=== PATIENT | female | born 1960 | race American Indian/Alaskan Native ===

== ENCOUNTER 2020-10-10 11:14 | Emergency (ER) | payer BC, OTHER ==
[2020-10-10 13:19] VITALS: BP 144/85
--- NOTE | 2020-10-10 15:11 | Emergency Department Report ---
ED Shortness of Breath HPI - General Chief Complaint: Fever Stated Complaint: COVID SYMPTOMS Time Seen by Provider: 10/10/20 15:07 Source: patient Mode of arrival: Ambulatory Limitations: No Limitations - History of Present Illness Initial Comments: 60-year-old female presents to the ER today with complaints of fever and shortness of breath. Patient states that her symptoms started about a week ago. She states that she was diagnosed with Covid 3 days ago. Patient states that she has been having subjective fever intermittently for the past week. She states that when she has a fever she has been taking Tylenol which typically brings the fever down but once it wears off the fever returns. She reports associated chills and generalized fatigue. She denies any body aches, cough, wheezing, chest pain, nausea, vomiting, abdominal pain or UTI symptoms. She denies any tobacco use. She denies any apparent ill contacts or recent travel. She denies any significant past medical history. MD Complaint: shortness of breath -: Gradual (1 week ago) - Related Data Previous Rx's Medication Instructions Recorded Last Taken Type Albuterol Mdi (or & Nicu Only) 2 puff IH QID PRN #8.5 gram 10/10/20 Unknown Rx [ProAir HFA Inhaler] Azithromycin [Zithromax Z-NIGEL] 250 mg PO DAILY #1 pack 10/10/20 Unknown Rx dexAMETHasone [Decadron] 4 mg PO DAILY #5 tablet 10/10/20 Unknown Rx ED Review of Systems ROS: Stated complaint: COVID SYMPTOMS Other details as noted in HPI Comment: All other systems reviewed and negative Constitutional: chills, fever, malaise ENT: denies: ear pain, throat pain Respiratory: shortness of breath, SOB with exertion. denies: cough, orthopnea, wheezing Cardiovascular: denies: chest pain, palpitations Gastrointestinal: denies: abdominal pain, nausea, vomiting, diarrhea, constipation, hematemesis, hematochezia Genitourinary: denies: urgency, dysuria, frequency, hematuria, discharge, abnormal menses, dyspareunia Musculoskeletal: denies: back pain, joint swelling, arthralgia Skin: denies: rash, lesions Neurological: denies: headache, weakness, paresthesias Psychiatric: denies: anxiety, depression, auditory hallucinations, visual hallucinations, homicidal thoughts, suicidal thoughts Hematological/Lymphatic: denies: easy bleeding, easy bruising ED Past Medical Hx - Past Medical History Previous Medical History?: No - Surgical History Past Surgical History?: No - Social History Smoking Status: Never Smoker Substance Use Type: None - Medications Home Medications: Home Medications Medication Instructions Recorded Confirmed Last Taken Type Albuterol Mdi (or & Nicu Only) 2 puff IH QID PRN #8.5 gram 10/10/20 Unknown Rx [ProAir HFA Inhaler] Azithromycin [Zithromax Z-NIGEL] 250 mg PO DAILY #1 pack 10/10/20 Unknown Rx dexAMETHasone [Decadron] 4 mg PO DAILY #5 tablet 10/10/20 Unknown Rx ED Physical Exam - General Limitations: No Limitations General appearance: alert, other (Mildly ill-appearing but overall nontoxic) - Head Head exam: Present: atraumatic, normocephalic, normal inspection - Eye Eye exam: Present: normal appearance, PERRL, EOMI Pupils: Present: normal accommodation - ENT ENT exam: Present: normal exam, mucous membranes moist - Neck Neck exam: Present: normal inspection, full ROM. Absent: meningismus - Respiratory Respiratory exam: Present: normal lung sounds bilaterally. Absent: respiratory distress, wheezes, rales, rhonchi, stridor - Cardiovascular Cardiovascular Exam: Present: regular rate, normal rhythm, normal heart sounds - GI/Abdominal GI/Abdominal exam: Present: soft. Absent: distended, tenderness, guarding - Neurological Exam Neurological exam: Present: alert, oriented X3, CN II-XII intact, normal gait - Psychiatric Psychiatric exam: Present: normal affect, normal mood ED Course Vital Signs 10/10/20 13:14 Temperature 99.4 F Pulse Rate 84 Respiratory 18 Rate Blood Pressure 144/85 O2 Sat by Pulse 92 Oximetry ED Medical Decision Making - Lab Data Result diagrams: 10/10/20 15:39 10/10/20 15:39 - EKG Data EKG shows normal: sinus rhythm Rate: normal (68) - EKG Data Interpretation: no acute changes - Radiology Data Radiology results: report reviewed Patient: IRMA HORN MR#: [id number] : 1960 Acct:[id number] Age/Sex: 60 / F ADM Date: 10/10/20 Loc: ED Attending Dr: Ordering Physician: YFN HUGHES Date of Service: 10/10/20 Procedure(s): XR chest routine 2V Accession Number(s): [id number] cc: YFNAMANDA HUGHES Fluoro Time In Minutes: CHEST 2 VIEWS INDICATION: sob. COMPARISON: None FINDINGS: Support devices: None. Heart: Within normal limits. Lungs/pleura: Subtle focal airspace opacities are identified in both perihilar regions. No consolidation, pleural fluid or pneumothorax. Additional findings: None. IMPRESSION: Subtle bilateral lung opacities are suggested. Viral infection is not excluded. Please correlate with the patient's clinical presentation. Signer Name: Isaiah Dowell Jr, MD Signed: 10/10/2020 3:37 PM Workstation Name: [id number] Transcribed By: YI Dictated By: ISAIAH DOWELL JR, MD Electronically Authenticated By: ISAIAH DOWELL JR, MD Signed Date/Time: 10/10/201536 DD/ 35 TD/TT: - Medical Decision Making 60-year-old female presents to the ER today with complaints of fever and shortness of breath. Patient states that her symptoms started about a week ago. She states that she was diagnosed with Covid 3 days ago. Patient states that she has been having subjective fever intermittently for the past week. She states that when she has a fever she has been taking Tylenol which typically brings the fever down but once it wears off the fever returns. She reports associated chills and generalized fatigue. She denies any body aches, cough, wheezing, chest pain, nausea, vomiting, abdominal pain or UTI symptoms. She denies any tobacco use. She denies any apparent ill contacts or recent travel. She denies any significant past medical history 1656: Labs/CXr/EKG reviewed - Labs including trop wnl; EKG show no STEMI/acute ischemic changes or significant dysrhythmia; CXR shows subtle bilateral lung opacities are suggested. Viral infection is not excluded. Please correlate with the patient's clinical presentation. changes on cxr likely secondary to COVID diagnosis. Patient was ambulated in the ER, her O2 sat maintained at 94% and she did not appear to be in any respiratory distress. Her heart rate maintained in the 90s during ambulation. She was afebrile and her remaining vitals were stable. She did not appear toxic or overly ill-appearing and did not appear significantly dehydrated and she was neurologically intact. Discussed case with Dr Nazario -based on patient current condition, there is no indication for admission; patient will be discharged home with a prescription for Decadron, albuterol, and Z-Nigel. Discussed lab results including chest x-ray results, diagnosis and treatment plan with patient. She is stable for discharge but expressed to her that she needs to return if at any point she feels like she is getting worse. She expressed understanding of instructions and agree with plan. Critical care attestation.: If time is entered above; I have spent that time in minutes in the direct care of this critically ill patient, excluding procedure time. ED Disposition Clinical Impression: Pneumonia due to COVID-19 virus Disposition: TO HOME OR SELFCARE Is pt being admited?: No Does the pt Need Aspirin: No Condition: Stable Instructions: COVID-19 Frequently Asked Questions, COVID-19: How to Protect Yourself and Others - CDC, Bacterial Pneumonia (ED) Additional Instructions: Take the zpak, the decadron and use the incentive spirometer and the albuterol MDI as prescribed. Drink lots of fluids, take multivitamin specially 1 continue vitamin D, vitamin C and zinc, and follow-up closely with your primary care doctor in the next couple days. Is important that you quarantine at home for the next 10 to 14 days. Return to the ER if your symptoms changes or worsens in any way. Prescriptions: dexAMETHasone [Decadron] 4 mg PO DAILY #5 tablet Albuterol Mdi (or & Nicu Only) [ProAir HFA Inhaler] 2 puff IH QID PRN #8.5 gram PRN Reason: Shortness Of Breath Azithromycin [Zithromax Z-NIGEL] 250 mg PO DAILY #1 pack Referrals: VANDANA LANGLEY MD [Staff Physician] - 3-5 Days Time of Disposition: 16:56
--- NOTE | 2020-10-10 16:00 | XRay Report ---
CHEST 2 VIEWS INDICATION: sob. COMPARISON: None FINDINGS: Support devices: None. Heart: Within normal limits. Lungs/pleura: Subtle focal airspace opacities are identified in both perihilar regions. No consolida tion, pleural fluid or pneumothorax. Additional findings: None. IMPRESSION: Subtle bilateral lung opacities are suggested. Viral infection is not excluded. Please correlate with the patient's clinical presentation. Signer Name: Isaiah Dowell Jr, MD Signed: 10/10/2020 3:37 PM Workstation Name: [id number]
[2020-10-10 16:22] LABS: Alanine Aminotransferase 38 units/L (7-56); BUN/Creatinine Ratio 11; Blood Urea Nitrogen 9 mg/dL (7-17); Calcium 8.9 mg/dL (8.4-10.2); Hemolysis Index 5
[2020-10-10 16:38] LABS: Eosinophils % (Auto) 0.1 % (0.0-4.3); Hematocrit 40.9 % (30.3-42.9); Hemoglobin 13.8 gm/dl (10.1-14.3); Lymphocytes % (Auto) 31.5 % (13.4-35.0); Mean Corpuscular HGB Conc 34 % (30-34); Mean Corpuscular Volume 88 fl (79-97); Monocytes # (Auto) 0.5 K/mm3 (0.0-0.8); Monocytes % (Auto) 7.1 % (0.0-7.3); Platelet Count 159 K/mm3 (140-440); Red Blood Count 4.67 M/mm3 (3.65-5.03); Red Cell Distribution Width 14.5 % (13.2-15.2)
--- NOTE | 2020-10-11 10:04 | Electrocardiograph Report ---
[facility] Test Date: 2020-10-10 Test Time: 15:19:44 Pat Name: IRMA HORN Department: Room: Gender: F External Auditor: JESSICA : 1960 Requested By: YFN HUGHES Order Number: [id number] Reading MD: Robina Ledezma Measurements Intervals [place] Rate: 68 P: 33 WI: 168 QRS: -3 QRSD: 86 T: -39 QT: 377 QTc: 402 Interpretive Statements Sinus rhythm Probable left atrial enlargement ST depression suggest lateral ischemia No previous ECG available for comparison Electronically Signed On 10-11-2020 10:04:13 EDT by Robina Ledezma
== END 2020-10-10 17:40 | disposition home or self-care (01) ==
LOC: ED 11:14
DX: U07.1 COVID-19 (principal); J12.82 Pneumonia due to coronavirus disease 2019; Z79.899 Other long term (current) drug therapy
CPT/HCPCS: 36415; 71046; 80053; 84484; 85025; 93005; 99283